=== PATIENT | female | born 1960 | race Caucasian/White ===

== ENCOUNTER 2022-06-29 03:39 | Observation (INO) | payer BC, SELFPAY ==
[2022-06-29] VITALS (23 sets, daily range): BP systolic 103–196; BP diastolic 79–101; PULSE 66–190; RESP 14–38; TEMP 35.8–36.6; O2SAT 96–100; BMI 42.5
--- NOTE | 2022-06-29 03:59 | ECG_ITS ---
Measurements Intervals [place] Rate: 174 P: MS: 0 QRS: -10 QRSD: 96 T: 15 QT: 263 QTc: 448 Interpretive Statements ATRIAL FIBRILLATION WITH RAPID VENTRICULAR RESPONSE DELAYED PRECORDIAL R/S TRANSITION LEFT VENTRICULAR HYPERTROPHY WITH ST-T CHANGE INFERIOR INFARCT, AGE INDETERMINATE BASELINE WANDER- I, II, III, AVR, AVL, AVF, V4-V6 ABNORMAL ECG NO PREVIOUS ECG AVAILABLE FOR COMPARISON Electronically Signed On 07-04-2022 8:33:30 CDT by Cedric Hargrove D.O.
[2022-06-29] MEDS: ADENOSINE IV SOLN 6 MG/2 ML VIAL 18 MG (04:08)
[2022-06-29] MEDS: SODIUM CHLORIDE 0.9% IV 1,000 ML 999 ML (04:09)
[2022-06-29] MEDS: dilTIAZem HCl INJ 25 MG/5 ML VIAL 10 MG IV PUSH (04:11)
[2022-06-29] MEDS: dilTIAZem 100 MG/100 ML 100 MG/100 ML BAG IV CONT (04:20)
--- NOTE | 2022-06-29 04:26 | ED.GENADULT ---
HPI - General Adult General Chief complaint: Unspecified Stated complaint: HTN, Palpitations Time Seen by Provider: 06/29/22 04:02 History of Present Illness HPI narrative: This is a 61-year-old female presenting ED with chief complaint of palpitations. Patient was woken from sleep with a strange fluttering sensation in her chest. She denies chest pain, difficulty breathing, lower extremity edema. She has no history of AFib. She has never had SVT before. She denies any other physical complaints. Related Data Allergies Allergy/AdvReac Type Severity Reaction Status Date / Time Penicillins Allergy Unknown Verified 08/05/08 13:12 Sulfa (Sulfonamide Allergy Unknown Verified 08/05/08 13:12 Antibiotics) [facility] Past Medical History Medical History H/O deep venous thrombosis HTN (hypertension) Surgical History Surgical History H/O section Social History Social History Social History: Patient drinks alcohol occasionally, denies tobacco or drug use. Exam Narrative: APPEARANCE: Patient appears uncomfortable Head: atraumatic. EYES: EOMI, NOSE: Atraumatic NECK: Trachea midline RESPIRATORY: No increased rate of breathing clear to auscultation bilaterally CARDIOVASCULAR: severely tachycardic, irregular no peripheral edema, ABDOMINAL: Non-distended MUSCULOSKELETAl: No obvious deformities NEURO: Alert. Moving 4/4 extremities SKIN:: Warm, dry. Normal color PSYCHIATRIC: Normal affect Course Vital Signs Vital signs: Vital Signs Temperature 96.4 F L 06/29/22 03:48 Pulse Rate 167 H 06/29/22 03:48 Respiratory Rate 20 06/29/22 03:48 Blood Pressure 133/98 H 06/29/22 03:48 Pulse Oximetry 99 06/29/22 03:48 Oxygen Delivery Room Air 06/29/22 03:48 Temperature 96.4 F L 06/29/22 03:48 Pulse Rate 81 06/29/22 05:34 Respiratory Rate 14 06/29/22 05:34 Blood Pressure 103/79 06/29/22 04:20 Pulse Oximetry 99 06/29/22 03:48 Oxygen Delivery Room Air 06/29/22 03:48 Medical Decision Making [facility] Narrative Medical decision making narrative: -Presentation: 61-year-old female presenting with palpitations. Found to have a heart rate of 180 on arrival. vagal maneuvers were attempted and unsuccessful. 6 mg of adenosine was given for diagnostic/ therapeutic reasons. No response. 12 mg was given which she ceased the rhythm and revealed atrial fibrillation. Diltiazem 10 mg-> 15mg given with some response. Patient was then started on a diltiazem drip. She is given 2 L of fluid. Lab work has been ordered. -DDX includes but is not limited to: AFib with RVR versus SVT -Co-morbidities complicating care: hypertension -Social determinants of health: retired real estate services administrator, lives alone -External Chart Review: none -Hx from independent Sources: none -Discussion of Management/Consultants: Davey-hospitalist -Independent interpretation of studies: Independent EKG interpretation: Rhythm irregular, Rate 190 [place] -[normal], MI -[normal], QRS [narrow], QTC [normal], T waves -[negative for concerning inversions], ST Segments - [Negative for concerning elevations] Final interpretations: AFib with RVR CHADS-VASc Score for Atrial Fibrillation Stroke Risk from [email or web address] on 06/29/2022 All calculations should be rechecked by clinician prior to use RESULT SUMMARY: 4 points Stroke risk was 4.8% per year in >90,000 patients (the [place] Atrial Fibrillation Cohort Study) and 6.7% risk of stroke/TIA/systemic embolism. INPUTS: Age ?> 0 = <65 Sex ?> 1 = Female CHF history ?> 0 = No Hypertension history ?> 1 = Yes Stroke/TIA/thromboembolism history ?> 2 = Yes Vascular disease history (prior VT, peripheral artery disease, or aortic plaque) ?> 0 = No Diabetes history ?> 0 = No After the patient was plac
[2022-06-29] MEDS: dilTIAZem HCl INJ 25 MG/5 ML VIAL 15 MG IV PUSH (04:44)
--- NOTE | 2022-06-29 04:49 | ECG_ITS ---
Measurements Intervals [place] Rate: 82 P: 6 [place]: 163 QRS: -22 QRSD: 78 T: 5 QT: 353 QTc: 413 Interpretive Statements SINUS RHYTHM VOLTAGE CRITERIA FOR LVH POOR R WAVE PROGRESSION, ANTERIOR LEADS INFERIOR INFARCT, AGE INDETERMINATE ABNORMAL ECG NO PREVIOUS ECG AVAILABLE FOR COMPARISON Electronically Signed On 06-29-2022 6:40:50 HOT MAN by Cedric Hargrove D.O.
[2022-06-29 04:56] LABS: Basophils Absolute Auto 0.1 K/mm3 (0.0-0.1); Basophils Percent Auto 0.8 % (0.2-1.2); Eosinophils Absolute Auto 0.2 K/mm3 (0-0.3); Eosinophils Percent Auto 2.6 % (0-4.4); Hematocrit 46.4 % (37.0-47.0); Immature Granulocyte Absolute 0.01 K/mm3 (0.00-0.031); Immature Granulocyte Percent A 0.1 % (0-0.5); Lymphocytes Absolute Auto 2.65 K/mm3 (0.9-3.2); Lymphocytes Percent Auto 36.9 % (18.3-44.2); Mean Corpuscular HGB Conc 32.3 g/dl (32-36); Mean Corpuscular Hemoglobin 28.7 pg (26-34); Mean Corpuscular Volume 88.7 fl (80-100); Mean Platelet Volume 10.8 fl (7.4-10.4); Monocytes Absolute Auto 0.8 K/mm3 (0.1-0.6); Monocytes Percent Auto 11.3 % (2.6-8.5); Neutrophils Absolute Auto 3.5 K/mm3 (1.3-6.7); Neutrophils Percent Auto 48.3 % (45.5-73.1); Platelet Count Result 228 k/mm3 (150-375); Red Blood Count 5.23 M/mm3 (4.2-5.4); Red Cell Distribution Width 13.5 % (11.5-14.5); White Blood Count 7.2 K/mm3 (4.5-10.0)
[2022-06-29 05:07] LABS: Prothrombin Time 12.3 Seconds (11.1-14.7)
[2022-06-29 05:08] LABS: Partial Thromboplastin Time 23.6 SECONDS (22.3-36.8)
[2022-06-29] MEDS: SODIUM CHLORIDE 0.9% IV 1,000 ML 999 ML IV CONT (05:36)
[2022-06-29 05:53] LABS: Anion Gap 7 mmol/L (8-16); Blood Urea Nitrogen 30 mg/dL (7-17); Calcium 8.5 mg/dL (8.4-10.2); Carbon Dioxide 23 mmol/L (22-30); Chloride 112 mmol/L (98-107); Estimated CRCL calculation 110 ml/min; Estimated Glomerular Filt Rate > 60; Glucose 132 mg/dL (65-110); Magnesium 1.9 mg/dL (1.6-2.3); Potassium 3.5 mmol/L (3.4-5.0); Sodium 142 mmol/L (137-145)
--- NOTE | 2022-06-29 05:55 | ED.GENADULT ---
HPI - General Adult General Chief complaint: Unspecified Stated complaint: HTN, Palpitations Time Seen by Provider: 06/29/22 04:02 Related Data Allergies Allergy/AdvReac Type Severity Reaction Status Date / Time Penicillins Allergy Unknown Verified 08/05/08 13:12 Sulfa (Sulfonamide Allergy Unknown Verified 08/05/08 13:12 Antibiotics) PMFSH Past Medical History Medical History H/O deep venous thrombosis HTN (hypertension) Surgical History Surgical History H/O section Social History Social History Social History: Patient drinks alcohol occasionally, denies tobacco or drug use. Course Vital Signs Vital signs: Vital Signs Temperature 96.4 F L 06/29/22 03:48 Pulse Rate 167 H 06/29/22 03:48 Respiratory Rate 20 06/29/22 03:48 Blood Pressure 133/98 H 06/29/22 03:48 Pulse Oximetry 99 06/29/22 03:48 Oxygen Delivery Room Air 06/29/22 03:48 Temperature 96.4 F L 06/29/22 03:48 Pulse Rate 81 06/29/22 05:34 Respiratory Rate 14 06/29/22 05:34 Blood Pressure 103/79 06/29/22 04:20 Pulse Oximetry 99 06/29/22 03:48 Oxygen Delivery Room Air 06/29/22 03:48 Medical Decision Making Vital Signs Vital Signs: Vital Signs Temperature 96.4 F L 06/29/22 03:48 Pulse Rate 167 H 06/29/22 03:48 Respiratory Rate 20 06/29/22 03:48 Blood Pressure 133/98 H 06/29/22 03:48 Pulse Oximetry 99 06/29/22 03:48 Oxygen Delivery Room Air 06/29/22 03:48 Temperature 96.4 F L 06/29/22 03:48 Pulse Rate 81 06/29/22 05:34 Respiratory Rate 14 06/29/22 05:34 Blood Pressure 103/79 06/29/22 04:20 Pulse Oximetry 99 06/29/22 03:48 Oxygen Delivery Room Air 06/29/22 03:48 Lab Data 06/29/22 04:50 06/29/22 05:30 Labs: Lab Results 06/29/22 06/29/22 06/29/22 Range/Units 04:50 04:50 05:30 WBC 7.2 (4.5-10.0) K/mm3 RBC 5.23 (4.2-5.4) M/mm3 Hgb 15.0 (12.0-15.0) g/dL Hct 46.4 (37.0-47.0) % MCV 88.7 (80-100) fl MCH 28.7 (26-34) pg MCHC 32.3 (32-36) g/dl RDW 13.5 (11.5-14.5) % Plt Count 228 (150-375) k/mm3 MPV 10.8 H (7.4-10.4) fl Immature Gran % (Auto) 0.1 (0-0.5) % Neut % (Auto) 48.3 (45.5-73.1) % Lymph % (Auto) 36.9 (18.3-44.2) % [place] % (Auto) 11.3 H (2.6-8.5) % Eos % (Auto) 2.6 (0-4.4) % Baso % (Auto) 0.8 (0.2-1.2) % Lymph # (Auto) 2.65 (0.9-3.2) K/mm3 [place] # (Auto) 0.8 H (0.1-0.6) K/mm3 Eos # (Auto) 0.2 (0-0.3) K/mm3 Baso # (Auto) 0.1 (0.0-0.1) K/mm3 Abs Immat Gran (auto) 0.01 (0.00-0.031) K/mm3 Absolute Neuts (auto) 3.5 (1.3-6.7) K/mm3 Absolute Nucleated RBC 0.0 (0.0-0.012) K/mm3 Nucleated RBC % 0.0 (0.0-0.2) % PT 12.3 (11.1-14.7) Seconds INR 1.0 APTT 23.6 (22.3-36.8) SECONDS Sodium 142 (137-145) mmol/L Potassium 3.5 (3.4-5.0) mmol/L Chloride 112 H (98-107) mmol/L Carbon Dioxide 23 (22-30) mmol/L Anion Gap 7 L (8-16) mmol/L BUN 30 H (7-17) mg/dL Creatinine 0.60 L (0.7-1.0) mg/dL Estim Creat Clear Calc 110 ml/min Estimated GFR > 60 (59 - ) Glucose 132 H (65-110) mg/dL Calcium 8.5 (8.4-10.2) mg/dL Magnesium 1.9 (1.6-2.3) mg/dL Discharge Plan Discharge Clinical Impression: Atrial fibrillation with rapid ventricular response Patient Disposition: Still a Patient Condition: Stable Follow-up/Referrals: PHYSICIAN NOT ON STAFF,NONSTAFF [Non-Staff] -
[2022-06-29] MEDS: ENOXAPARIN 120 MG/0.8 ML SYRINGE SUB-Q (06:00)
--- NOTE | 2022-06-29 06:35 | ADMGEN ---
This patient, Guillermo Burdick, was admitted to 2 Medical Room 251-. Patient/family oriented to hospital policies and general routines including ID bracelet, bed and alarms, visiting hours, pain management, procedures, bathroom and other care routines, personal items, smoking policy, room service/diet, and visiting hours. Information on how to activate the Rapid Response Team has been discussed. Patient/Family are encouraged to report perceived risks to care and to ask questions if they do not understand what they are told or what they should do.
--- NOTE | 2022-06-29 08:17 | PM.IMHP ---
H&P: HPI History of Present Illness Date/Time: 06/29/22 08:17 Chief Complaint: 06/29/22 Narrative: Date of service: 06/29/2022 Guillermo Burdick this 61-year-old female with history of hypertension, COVID-19 in April 2020 with subsequent provoked DVT previously on Eliquis (recently discontinued in April 2022) who presented to the emergency department on 06/29/2022 with complaints of palpitations. She stated that at approximately 2:30 a.m. she started feeling weird. She stated that she could feel her heart beating and it was just not right, she had a sense of discomfort that she felt might be related to indigestion. she then checked her blood pressure and vomited was a little bit lower than normal for her, in the 120 systolic. She continue to poorly then recheck her blood pressure at that time found her pulse to be 141. It then briefly went back down and then rhonda up again into the 126. At that time she called her son and came to the ER for evaluation. On presentation to the ED, her heart rate was 167, BP 133/98, additional vital signs stable, CBC and BMP unremarkable, potassium 3.5, magnesium 1.9. she is being admitted to the hospitalist service for further evaluation and management and be seen in consultation by cardiology. The patient states that she has not had any recent chest pain shortness of breath, DAVILA, dizziness, lightheadedness, fatigue, weakness. she has felt in her usual state of health recently. She denies urinary symptoms including dysuria or hematuria. She denies any episodes of bleeding. States she tolerated Eliquis well when she took it in the past. States that she has been working with her primary care provider to improve her blood pressure. she wanted to consider alternative management for her blood pressure other than medications but has recently started taking lisinopril just over a month ago. She did a 24 hour urine test for heavy metals to determine if this was contributing to her hypertension was found to have upper limit of normal levels of barium. She and her primary care provider are in the process of considering chelation therapy. Review of Systems Review of Systems: All systems reviewed & are unremarkable except as noted in HPI and below PMFSH Past Medical History Medical History (Updated 06/29/22 @ 08:49 by More J. Stimac, PA-C) COVID-19 H/O deep venous thrombosis HTN (hypertension) Surgical History Surgical History H/O section Family History Family History (Updated 06/29/22 @ 08:30 by More Andrews PA-C) Father Heart attack Leukemia Sibling Heart attack Mother Hypertension Colon cancer Grandparent Heart attack Social History Social History (Updated 06/29/22 @ 08:37 by More Andrews PA-C) Social History: Patient lives at home with her . She is independent in her daily activities. She is retired and babysits her grandchildren throughout the week. Her PCP is Dr. Alves in [place]. She is a full code. Smoking status: Never smoker Alcohol intake: never Substance use: never Lack of Transportation: No Lack of Food: Never True Current Housing: I Have Housing Concerned About Future Housing: No Difficulty Paying Gas/Electric Bills: No Difficulty Paying for Meds: No Currently Unemployed: No Education: Associate Degree Difficulty w/ Childcare or Family Care: No Spiritual care concerns: No Meds Home Medications and Allergies Home Medications Medication Instructions Recorded Confirmed Type hydrochlorothiazide 12.5 mg tablet 12.5 mg PO DAILY 06/29/22 06/29/22 History lisinopril 20 mg tablet 20 mg PO DAILY 06/29/22 06/29/22 History lisinopril 30 mg tablet 30 mg PO Q12H 06/29/22 06/29/22 History Allergies Allergy/AdvReac Type Severity Reaction Status Date / Time Penicillins Allergy Unknown Verified 08/05/08 13:12 Sulfa (Sulfonamide Allergy Unknown
[2022-06-29] MEDS: lisinopriL 10 MG TABLET 30 MG PO ×2 (09:32→21:17)
[2022-06-29] MEDS: MAGNESIUM SULF 1 GM/D5W 100 ML 1 GM/100 ML BAG IVPB (09:32)
[2022-06-29] MEDS: hydroCHLOROthiazide 12.5 MG CAPSULE PO (09:33)
--- NOTE | 2022-06-29 09:37 | PM.CNCAR ---
Assessment and Plan Assessment and plan (1) Atrial fibrillation with rapid ventricular response: Code(s): I48.91 - Unspecified atrial fibrillation Status: Acute Assessment and Plan: new onset AFib RVR, back in NSR after Cardizem. Counseled patient about atrial fibrillation, treatment, cardioembolic risk reduction etc.. Her had AFib and AFib ablation so she is familiar with this. TSH in April was normal at 2.5 check echo outpatient Sleep Test (or Apnea Link if she stays the night ) start Cardizem 180 mg daily CHADS2 Vasc score is 2, will be 3 when she reaches 63. Recommend anticoagulation. Familiar with Eliquis so will start that at 5 mg b.i.d.. I'll leave some samples and a prescription card on her chart. likely okay to be discharged today if no more AFib and echo is okay Outpatient follow-up (2) HTN (hypertension): Code(s): I10 - Essential (primary) hypertension Status: Acute Assessment and Plan: has been difficult to control. Working on diet, trying to lose weight with Weight [employer]chers, but so far not successful. Patient is being evaluated for an elevated barium level. To my knowledge there is no association of barium with hypertension or other toxicities. (3) H/O deep venous thrombosis: Code(s): Z86.718 - Personal history of other venous thrombosis and embolism Status: Resolved Assessment and Plan: History of DVT associated with COVID 19 infection, previously on Eliquis. (4) Hypercholesterolemia: Code(s): E78.00 - Pure hypercholesterolemia, unspecified Status: Acute Assessment and Plan: labs done in April showed a total cholesterol 262 and LDL cholesterol of 162, quite elevated. her high sensitivity CRP in April was 7.5 which is also elevated both these put her at risk of cardiovascular events. Counseled patient about heart healthy diet. Best heart-healthy diets are flexitarian, Mediterranean, vegetarian and vegan. May need to consider statin therapy to reduce future risk. History of Present Illness History of Present Illness Consult date/time: 06/29/22 09:37 Reason For Visit: Afib w/ RVR Narrative: Guillermo Burdick this 61-year-old female whom we were asked to see at the request of VICTORINO Gomez, for my advice and opinion regarding her new onset AFib, in consultation. History of DVT associated with COVID in 2020, previously on Eliquis. The patient awoke this morning around 2:00 a.m. with her heart racing and feeling odd. No shortness of breath, dizziness or chest pain. She came to the emergency room, and was found to have AFib RVR, heart rate 190. She did not convert with adenosine ( initially she was thought to have SVT) but Then was given IV Cardizem and a Cardizem drip, and has converted to sinus rhythm. this has been discontinued. She was started on Lovenox full dose. History of hypertension, no heart disease, some DAVILA, no chest pain, some lower extremity edema. She does snore no but no known sleep apnea. No thyroid disease, Bleeding, strokes, or falls. Prefers to avoid medicines in hospitals, prefers to do things naturally. Review of Systems Constitutional: Constitutional: Denies fever(s) Comments: Unable to lose weight Eyes: Eyes: Reports no additional eye complaints ENT: Denies epistaxis Cardiovascular: Cardiovascular: Denies chest pain, Denies pedal edema, Reports leg edema, Denies lightheadedness, Reports palpitations and Denies dyspnea Respiratory: Respiratory: Denies chest congestion, Denies dyspnea and Reports dyspnea on exertion ( difficulty walking fast or climbing stairs) Gastrointestinal: Gastrointestinal: Denies abdominal pain and Denies hematochezia Genitourinary: Genitourinary: Denies hematuria Musculoskeletal: Musculoskeletal: Reports no additional musculoskeletal complaints Integumentary/Breasts: Skin/Breast: Reports system reviewed and
--- NOTE | 2022-06-29 09:54 | ECHO_ITS ---
Patient Info Name: Guillermo Burdick Age: 61 years : 1960 Gender: Female Ht: 67 in Wt: 271 lbs BSA: 2.47 m2 HR: 71 bpm BP: 178 / 90 mmHg Heart Rhythm: Sinus Rhythm Technical Quality: Fair Exam Date: 06/29/2022 2:15 PM Exam Location: [facility] Pulmonary Exam Room: 251 Patient Status: Inpatient Admit Date: 06/29/2022 Staff Ordering Physician: Emily Sinha MD [employer]: Brissa Casas RDCS Attending Provider: More Andrews PA-C Referring Physician: Ernestine GALLAGHER; Exam Type: CA echo doppler color flow Study Info Indications - new afib dvt Complete two-dimensional, color flow and Doppler transthoracic echocardiogram is performed. Summary 1. Complete two-dimensional, color flow and Doppler transthoracic echocardiogram is performed. 2. Normal left ventricular size with mild concentric hypertrophy. Good systolic function of all segments with an ejection fraction estimated to be 65-70%. No wall motion abnormalities. Normal diastolic function. 3. Left atrial chamber dimension is moderately enlarged. 4. No significant valve stenosis or regurgitation. Mitral annular calcification and aortic valve sclerosis are present. 5. Borderline pulmonary hypertension with an estimated RVSP 35 mmHg. 6. Normal sinus rhythm. Left Ventricle Left ventricular chamber dimension is normal. Left ventricular systolic function is normal, estimated at 65-70%. There is mildly increased left ventricular wall thickness. Left ventricular septal wall motion is normal. The left ventricular diastolic function is normal. Right Ventricle Right ventricular chamber dimension is normal. Right ventricular systolic function is normal. Left Atria Left atrial chamber dimension is moderately enlarged. Right Atria Right atrial chamber dimension is normal. Aortic Valve The aortic valve is trileaflet. There is mild aortic valve sclerosis. There is no aortic valve stenosis. There is no aortic valve regurgitation. Pulmonic Valve The pulmonic valve is normal. There is no pulmonic valve stenosis. There is no pulmonic regurgitation. Mitral Valve The mitral valve has normal leaflets. There is no mitral valve stenosis. There is no mitral valve regurgitation. There is moderate mitral valve calcification. Tricuspid Valve The tricuspid valve leaflets are normal. There is no significant tricuspid valve stenosis. There is trace tricuspid valve regurgitation. Mild pulmonary hypertension, estimated pulmonary arterial systolic pressure is 36 mmHg. Pericardium/Pleural The pericardium appears normal. There is no pericardial effusion. Inferior Vena Cava Normal inferior vena cava with >50% collapse upon inspiration consistent with Empty right atrial pressure, 10 mmHg. Aorta The aortic root size at the sinus of Valsalva is normal. The prox ascending aorta size is normal. Left Ventricular Outflow Tract Name Value Normal LVOT 2D LVOT Diameter 2.0 cm LVOT Doppler LVOT Peak Gradient 4 mmHg LVOT Mean Gradient 2 mmHg LVOT VTI
[2022-06-29] MEDS: dilTIAZem HCL CD 180 MG CAP.ER.24H PO (12:01)
[2022-06-29] MEDS: lisinopriL 20 MG TABLET PO (15:37)
[2022-06-29] MEDS: hydrALAZINE HCL 20 MG/ML VIAL 10 MG IV PUSH (19:03)
[2022-06-29] MEDS: APIXABAN 5 MG TABLET PO (21:17)
[2022-06-30] VITALS: PULSE 72
[2022-06-30 04:00] VITALS: PULSE 68
[2022-06-30 05:34] VITALS: BP 145/75; PULSE 73; RESP 14; TEMP 36.9; O2SAT 95
--- NOTE | 2022-06-30 05:50 | PC.NURSE ---
Pt refused labs this A.M. Stating she is not being stuck, and they pulled from her line in the ED. Staff explained that we can not pull from her line after it has been used, and she would need to have her labs drawn. Pt continues to refuse.
[2022-06-30] MEDS: dilTIAZem HCL CD 180 MG CAP.ER.24H PO (09:59)
[2022-06-30] MEDS: hydroCHLOROthiazide 12.5 MG CAPSULE PO (09:59)
[2022-06-30] MEDS: APIXABAN 5 MG TABLET PO (09:59)
[2022-06-30] MEDS: lisinopriL 10 MG TABLET 30 MG PO (10:00)
--- NOTE | 2022-06-30 10:20 | PM.DS ---
DS: Admitting Diagnosis Discharge Date 06/30/22 1030 Admitting Diagnosis New onset Afib DS: Discharge Diagnosis Discharge Diagnosis (1) Atrial fibrillation with rapid ventricular response: Code(s): I48.91 - Unspecified atrial fibrillation Status: Acute Assessment and Plan: Patient with new onset atrial fibrillation with HR up to 167 on presentation Received diltiazem and adenosine Initial EKG showed pt had converted back to sinus rhythm with HR 82 Full dose lovenox given this morning CHADS2-VASC score is 4 (female, HTN, hx VTE) Continue to monitor on telemetry Appreciate cardiology recommendations Echo stable with EF of 60-65%, no diastolic dysfunction, in sinus rhythm Continue Cardizem post discharge (2) HTN (hypertension): Code(s): I10 - Essential (primary) hypertension Status: Acute Assessment and Plan: Blood pressures have been elevated this admission. Last BP 145/75 patient recently started antihypertensive per PCP continue home lisinopril hydrochlorothiazide (3) H/O deep venous thrombosis: Code(s): Z86.718 - Personal history of other venous thrombosis and embolism Status: Resolved Assessment and Plan: Patient with onset of DVT following COVID-19 patient took Eliquis for 1 year post DVT and reports stopping in April 2022 (4) Hypomagnesemia: Code(s): E83.42 - Hypomagnesemia Status: Acute Assessment and Plan: Mag is 1.9 Goal around 2.0 Will give 1 g IV Mag Sulfate DS: Summary Hospital Course Hospital Course: Patient is 61-year-old female with a past medical history of hypertension, COVID, DVT who presented the ED with complaints palpitations. Patient stated that they proximally started at 2:30 a.m. in the morning the day of admission. Upon arrival it was noted that the patient did have heart rate in the 160s Patient was suspected to have AFib RVR. Patient was given Cardizem and dizzy in the ED and had converted back to sinus rhythm per EKG. [place] Vasc score was a 4, and patient has been started on Eliquis for prophylaxis. cardiology was consulted and an echo was performed and showed an EF of 60 65%. Cardizem had been started at 180mg per day and patient has been able to maintain sinus rhythm. Blood pressure has been better controlled. Currently patient feels stable for discharge. Labs and vital signs remained stable as well. Patient denies any current chest pain, shortness a breath, nausea, vomiting, diarrhea or constipation. Patient is stable for discharge and will need to follow up with Cardiology outpatient for further workup. Status at Discharge Functional status at discharge: independent ambulation Overall status at discharge: patient is progressing back to baseline Time Spent with Patient Time attestation: Total time spent providing and/or coordinating discharge services:56 minutes Time spent: Greater than 30 minutes Specific discharge activities: Diagnostic testing, chart review, developing a treatment plan, education, care coordination documentation, physical exam, result review Exam Narrative: General: well-nourished, well-appearing 61-year-old female, sitting up in bed, comfortable, NARD Neuro: awake, alert and oriented x4, speech clear, no focal neuro deficits noted HEENMT: normocephalic, atraumatic, EOMI, sclerae anicteric, moist oral mucosa Respiratory: Clear to auscultation bilaterally without crackles, rhonchi or wheezes, nonlabored breathing Cardio: regular rate, regular rhythm with S1-S2 Abdomen: nondistended, normoactive bowel sounds, soft, nontender to palpation Extremities: no edema, erythema, or tenderness to palpation, DP pulses 2+ bilaterally Skin: no rashes or lesions, warm and dry Psych: appropriate mood and affect, judgment and insight intact Discharge Plan Discharge Attending physician on discharge: Dillon Dudley Consulting providers: Emily Sinha
== END 2022-06-30 11:50 | disposition home or self-care (01) ==
LOC: ANHED 05:08 → ANH2MED 06:54
PROVIDERS: Admitting Provider Internal Medicine; Emergency Provider Emergency Medicine; Visit Provider Physician Assistant
DX: I48.91 Unspecified atrial fibrillation (principal); I10 Essential (primary) hypertension; E83.42 Hypomagnesemia; R00.2 Palpitations; R00.1 Bradycardia, unspecified; R11.10 Vomiting, unspecified; R94.31 Abnormal electrocardiogram [ECG] [EKG]; Z86.718 Personal history of other venous thrombosis and embolism; Z86.16 Personal history of COVID-19; Z82.49 Family history of ischemic heart disease and other diseases of the circulatory system; Z80.6 Family history of leukemia; Z80.0 Family history of malignant neoplasm of digestive organs; Z79.899 Other long term (current) drug therapy
CPT/HCPCS: 36415; 80048; 83735; 85025; 85610; 85730; 93005; 93306; 94762; 96365; 96366; 96372; 96375; 96376; 99285; A9270; G0378; J0153; J0360; J1650; J3475; J7030